=== PATIENT | female | born 1950 | race Caucasian/White ===

== ENCOUNTER 2024-03-10 14:41 | Day surgery (SDC) | payer MEDICARE ==
[2024-03-10] MEDS ORDERED: LIDOCAINE HCL 1% AMPUL 5 ML IJ ONE (14:42)
[2024-03-10] MEDS ORDERED: BUPIVACAINE 0.5% VIAL IJ ONE (14:42)
[2024-03-10] MEDS ORDERED: Depo-Medrol 40 MG/ML IM ONE (14:42)
--- NOTE | 2024-03-10 21:05 | XRAY ---
Indication: Right SI joint and right greater trochanter bursa injection. Intraoperative fluoroscopy provided for 16 seconds. 2 digital spot image submitted for interpretation demonstrates posterior needle tip projecting posterior to right SI joint. Second needle tip lateral to right greater trochanter. Small amount of contrast injected for both needle tip placement. Correlate with intraoperative findings/report. Incidental right hip arthroplasty.
--- NOTE | 2024-03-11 08:40 | XRAY ---
16 seconds of fluoroscopy used in surgery for a right sacroiliac joint injection and a right hip greater trochanteric bursa injection.
== END 2024-03-10 17:25 | disposition home or self-care (01) ==
LOC: SDC-PAIN 14:41
PROVIDERS: ATTEND Psychiatry & Neurology Pain Medicine
DX: M46.1 Sacroiliitis, not elsewhere classified (principal); E11.9 Type 2 diabetes mellitus without complications
CPT/HCPCS: 73501; 77002; 82947

== ENCOUNTER 2024-04-15 14:49 | Day surgery (SDC) | payer MEDICARE ==
[2024-04-15] MEDS ORDERED: dexAMETHasone sodium phosphate IJ ONE (14:50)
[2024-04-15] MEDS ORDERED: Depo-Medrol 40 MG/ML IM ONE (14:50)
[2024-04-15] MEDS ORDERED: BUPIVACAINE 0.5% VIAL IJ ONE (14:50)
[2024-04-15] MEDS ORDERED: LIDOCAINE HCL 1% AMPUL 5 ML IJ ONE (14:50)
--- NOTE | 2024-04-15 16:37 | XRAY ---
Indication: Right knee injection. Intraoperative fluoroscopy provided for 6 seconds. Single digital spot image submitted for interpretation demonstrates needle tip projecting over right femur intercondylar notch. Small amount of contrast injected for needle tip placement. Correlate with intraoperative findings/report.
--- NOTE | 2024-04-16 09:23 | XRAY ---
6 seconds of fluoroscopy was used in surgery for a right intra-articular knee injection.
== END 2024-04-15 16:30 | disposition home or self-care (01) ==
LOC: SDC-PAIN 14:49
PROVIDERS: ATTEND Psychiatry & Neurology Pain Medicine
DX: M17.11 Unilateral primary osteoarthritis, right knee (principal); E11.9 Type 2 diabetes mellitus without complications
CPT/HCPCS: 20553; 20610; 73560; 77002; 82947; J1100; Q9966

== ENCOUNTER 2024-12-01 08:53 | Day surgery (SDC) | payer MEDICARE ==
[2024-12-01] MEDS ORDERED: BUPIVACAINE 0.5% VIAL IJ ONE (08:54)
[2024-12-01] MEDS ORDERED: methylPREDNISolone acetate IM ONE (08:54)
[2024-12-01] MEDS ORDERED: propofoL IV ONE (10:57)
[2024-12-01] MEDS ORDERED: Lactated Ringers 1,000 ML IV ONE (11:24)
--- NOTE | 2024-12-01 12:16 | XRAY ---
39 seconds of fluoroscopy was used in surgery for a bilateral sacroiliac joint injection.
--- NOTE | 2024-12-01 12:18 | XRAY ---
Indication: Bilateral SI joint injection. Intraoperative fluoroscopy provided for 39 seconds. 2 digital spot images submitted for interpretation demonstrates posterior needle tips projecting over expected left and right SI joints. Small amount of contrast injected for needle tip placement. Correlate with intraoperative findings/report. Incidental incompletely visualized right hip arthroplasty.
== END 2024-12-01 11:02 | disposition home or self-care (01) ==
LOC: SDC-PAIN 08:53
PROVIDERS: ATTEND Psychiatry & Neurology Pain Medicine
DX: M46.1 Sacroiliitis, not elsewhere classified (principal); E11.9 Type 2 diabetes mellitus without complications